=== PATIENT | female | born 1985 | race Caucasian/White ===

== ENCOUNTER 2016-11-16 13:12 | Emergency (ER) | payer MEDICAID ==
[~2016-11-16 13:12] MED LIST: ABILIFY10 MG PO; ABILIFY2 MG PO; ABILIFY5 MG PO; ADVAIR DIS1 PUFF/DO2 IH; ADVAIR IH; ARIPIPRAZOLE PO; ATARAX DPS50 MG PO; ATIVAN-DPS0.5 MG PO; AUGMENTIN875 MG PO; BUSPAR DPS10 MG PO; BUSPAR5 MG PO; CELEXA DPS20 MG PO; CELEXA40 MG PO; CIPRO DPS500 MG PO; DELTASONE DPS1 MG PO; DELTASONE DPS10 MG PO; DELTASONE DPS20 MG PO; DEPAKOTE500 MG PO; DOXYCYCLINE HY100 MG PO; DULERA 200/58.8 GM IH; DUONEB DPS3 ML IH; ELAVIL-DPS50 MG PO; EXCEDRIN DPS1 TAB PO; FLONASE 0.05% D16 GM NS; GUAIFEN-CODEIN473 ML PO; GUAIFENESIN ER600 MG PO; HABITROL DPS21 MG TD; IBUPROFEN400 MG PO; LEVAQUIN750 MG PO; LEXAPRO DPS10 MG PO; MAG-OX400 MG PO; MEDROL DOSE PACK PO; MINIPRESS DPS1 MG PO; MINIPRESS DPS2 MG PO; MONTELUKAST SOD10 MG PO; NAPROSYN DPS500 MG PO; NORVASC5 MG PO; PEPCID DPS20 MG PO; PHENERGAN DPS25 MG PO; PREDNISONE PO; PROAIR HFA8.5 GM IH; PROAIR RESPICL90 MCG IH; PROVENTIL 90 MCG IH; PROVENTIL HFA6.7 GM IH; SINGULAIR DPS5 MG PO; TOPAMAX50 MG PO; TYLENOL DPS325 MG PO; XANAX DPS0.5 MG PO; ZANAFLEX4 MG PO; ZANTAC DPS150 MG PO; ZITHROMAX250 MG PO; ZITHROMAX500 MG PO; ZYRTEC DPS10 MG PO; ZYRTEC10 M3 PO
--- NOTE | 2016-11-20 12:33 | ER ---
ADMIT: 11/16/2016 RM/LOC: ER [facility] MR#: [id number] 26[address] [facility] [id number] SHALA BOURGEOIS [address] [place] [address] Emergency Room Report SEX: F AGE: 31 : 1985 DATE: 11/16/2016 ADDENDUM: A 31-year-old white female coming in with vocal cord dysfunction. She has had this before. She gets a little anxious and then starts spasming of vocal cord. She has been seen at [facility], where they have been treating her as they have her in speech therapy. At this time, she does not have asthma. This is all upper airway problems. She needs to be followed up per ENT and speech therapy. We did give her Ativan IV that seems to help her and she is back to normal. CONDITION ON DISCHARGE: Improved. Marcio Pate MD/ liana JOB #: [id number] CC: Marcio Pate MD, Attending Physician Arnoldo Driscoll MD, Family Physician
[2016-12-29] MEDS ORDERED: SEROQUEL50 MG PO (13:34)
[2016-12-29] MEDS ORDERED: AMOXICILLIN875 MG PO (13:35)
== END 2016-11-16 14:30 | disposition home or self-care (01) ==
LOC: ER 13:12
DX: J38.3 Other diseases of vocal cords (principal); I10 Essential (primary) hypertension; G43.909 Migraine, unspecified, not intractable, without status migrainosus; Z79.899 Other long term (current) drug therapy

== ENCOUNTER 2016-12-25 16:00 | Inpatient (IN) | payer MEDICAID ==
[~2016-12-25] VITALS: Ht 167.6 cm; Wt 136.3 kg
[2016-12-29] MEDS ORDERED: SEROQUEL50 MG PO (13:34)
[2016-12-29] MEDS ORDERED: AMOXICILLIN875 MG PO (13:35)
--- NOTE | 2017-01-01 11:01 | ER ---
ADMIT: 12/25/2016 RM/LOC: 307 [facility] MR#: [id number] [address] [address] SHALA BOURGEOIS [address] [place] [address] Emergency Room Report SEX: F AGE: 31 : 1985 DATE: 12/25/2016 ADDENDUM: This is a 31-year-old white female coming in with respiratory distress. She has a known vocal cord dysfunction. Usually if we calm her down, she does okay. However, according to her sister, there was medicine lost. Apparently, she had overdosed on something. There was a bottle of Unasyn that was gone, but other than that, nothing more. We did end up putting her on BiPAP. This seemed to control her airway enough. Her chemistry is negative. Tylenol level, alcohol is negative. TSH is negative. Salicylate level is 2.1. Her CBC is okay at this time, not . Drug screen is pending at this time. She is stable on BiPAP. We will admit her for further observation. CONDITION ON DISCHARGE: Critical but stable. I spoke with Dr. Page. She will need to admit. Marcio Pate MD/ galdinol JOB #: [id number] CC: Arnoldo Driscoll MD, Attending Physician Arnoldo Driscoll MD, Family Physician
--- NOTE | 2017-01-02 09:07 | HP ---
ADMIT: 12/25/2016 RM/LOC: 307 [facility] MR#: [id number] [address] [address] SHALA BOURGEOIS [address] [place] [address] History and Physical SEX: F AGE: 31 : 1985 DATE OF SERVICE: 12/25/2016 CHIEF COMPLAINT: Overdose. HISTORY OF PRESENT ILLNESS: Shala Bourgeois is a 31-year-old female with past medical history significant for questionable seizure disorder, mood disorder, history of overdose, presents to the emergency department today after overdose. The patient was in her normal state of health until this afternoon, she was on the phone with her power of civil attorney and friend, Patricia. During this telephone conversation, Patricia noticed that the patient was somnolent and often would space out during the conversation. Patricia asked Shala what medications she took today, Shala stated that she took her Celexa, her BuSpar, and her Minipress as normal. The patient seemed excessively disoriented and somnolent on the phone, so Patricia called Shala's sister Valerie to go check on her at home. When Valerie arrived at the house, did startle Shala, and the patient started exhibiting seizure-like activity with convulsing, and called the EMS. When they arrived, they administered valium for seizure-like activity, and the patient was brought to the emergency department for further evaluation. On presentation, the patient was given IV fluids with normal saline and placed on BiPAP. There was some concern for airway protection given recent vomiting, but the patient was following commands and she has a known history of vocal cord dysfunction, so wanted to avoid intubation at all possible costs. The patient was on BiPAP when interviewed by myself, currently mildly distressed, tachypneic, able to squeeze hands, and spontaneously talk with difficulty since she is on BiPAP. REVIEW OF SYSTEMS: Unable to be obtained. PAST MEDICAL HISTORY: Significant for mood disorder, NOS; questionable seizure disorder; past medical history of vocal cord dysfunction. PAST SURGICAL HISTORY: Unknown. FAMILY HISTORY: Mom apparently has seizures. SOCIAL HISTORY: No significant alcohol use. Does have some suicide attempt in the past with Unisom about a year ago. No other drug use known. MEDICATIONS: 1. Prazosin. 2. Celexa. 3. BuSpar. PHYSICAL EXAMINATION: VITAL SIGNS: Blood pressure 123/72, heart rate 109, the patient is currently on BiPAP 16/8 setting at 95%. GENERAL: On BiPAP, follows commands. Mild to moderate distress. EARS, EYES, NOSE, THROAT: EOMI. Pupils are dilated bilaterally with response to light. LUNGS: The patient is on BiPAP, but clear to auscultation. No crackles. ADMIT: 12/25/2016 RM/LOC: 307 [facility] MR#: [id number] [address] [address] SHALA BOURGEOIS [address] [place] [address] History and Physical SEX: F AGE: 31 : 1985 CARDIAC: Tachycardic. Regular. No murmurs. Intact radial, posterior tibial, and dorsalis pedis pulses. ABDOMEN: Obese, nontender, positive bowel sounds. EXTREMITIES: No notable edema. One small bruise on the medial side of the left leg. NEUROLOGIC: Slightly obtunded but arousable and able to follow commands. LABORATORY DATA: WBC 7, hemoglobin 15.4, and platelets 278. Sodium 143, potassium 4.0, chloride 110, carbon dioxide 21, glucose 123, creatinine 1.0, calcium 8.1. Normal AST and ALT. Magnesium 2.1. Urinalysis unremarkable. UDS positive for benzodiazepines. Acetaminophen level less than 2. Ethanol, not detected. Thyroid functioning test normal. test negative. IMAGING: No imaging. ASSESSMENT AND PLAN: This is a 31-year-old woman with past medical history significant for mood disorder, not otherwise specified; possible seizure disorder; history of overdose, presents to the emergency department with seizure-like activity after overdose on Unisom. 1. Acute hypoxic respiratory failure secondary to overdose on Unisom, currently on BiPAP, saturating well on room air. Some concern for ability to protect airway. Going to get ABG. We will consider intubation if unable to protect airway. 2. Overdose. Suspect on Unisom, 2 empty bottles containing 60 pills each 25 mg doses. Continue IV fluids placing NG tube. 3. Mood versus anxiety disorder, not otherwise specified. Will require medical hold and consult to Psychiatry. Unclear if the patient has had past psychiatric hospitalizations. 4. Vocal cord dysfunction. Currently on BiPAP. We will assess need for intubation, but would like to hold if possible. 5. Questionable seizure disorder. The patient was given Valium en route to ADMIT: 12/25/2016 RM/LOC: 307 [facility] MR#: [id number] [address] [place] [phone] SHALA BOURGEOIS [address] [place] [address] History and Physical SEX: F AGE: 31 : 1985 the emergency department. Unclear if the patient has true seizure disorder. POA describes the seizure as absence; however, sister describes previous seizures as clonic tonic seizures. The patient was supposed to be evaluated by Neurology yesterday, but no show at the appointment. We will continue to monitor even if the patient does not have seizure disorder, she is likely to seize given overdose on antihistamine. 6. Deep venous thrombosis prophylaxis, Lovenox. 7. Code status: Full code. 8. Diet: NPO. My telephone number is [phone]. Please feel free to contact me if any questions or concerns. 45 minutes was spent in the admission and evaluation of this patient. Dave Rondon MD Resident / Leana Page MD / modl JOB #: [id number] CC: Arnoldo Driscoll MD, Attending Physician Arnoldo Driscoll MD, Family Physician
--- NOTE | 2017-01-04 14:08 | CO ---
ADMIT: 12/25/2016 RM/LOC: 307 [facility] MR#: [id number] [address] [address] BOURGEOISSHALA Tyler [address] [place] [address] Consultation SEX: F AGE: 31 : 1985 DATE OF CONSULTATION: 12/26/2016 ATTENDING PHYSICIAN: Arnoldo Driscoll MD CONSULTING PHYSICIAN: Douglas Infante MD IDENTIFYING INFORMATION/REASON FOR CONSULT: Shala is a 31-year-old, single, white female, resident of [place] where she resides with her 2 young children. Admitted to us subsequent to an overdose on Unisom. Details as mentioned in the history and physical examination. HISTORY OF PRESENT ILLNESS: Shala states that she does suffer from depression and does have an outpatient team that works with her. About the events, yesterday states that she really does not recall what exactly transpired. Remembers being on the phone with a friend, Carissa who got concerned as Shala appeared a bit slurred, but Carissa alerted the sister, who came over and that is where she apparently was having some "seizure-like activity." Does not see any neurologist that she knows of. Feels it might be more stress related. Does not remember taking any medications and definitely denies intentionally doing something to hurt herself. Talked about how she has a job in [employer], is a mother to 2 young kids and she would never think about taking her life or hurting herself in any way. Does endorse that she has been feeling a bit depressed and has an appointment with a psychiatrist coming up next week. Talked about various stressors which are around taking care of her 2 young children by herself and the financial issues etc. Single, but no relationship issues. Denies any suicidal ideations or intent. Vehemently declines ever wanting to hurt herself. No psychosis at this time, was a bit tired and somnolent, but otherwise able to understand questions. Gave responses, appeared relevant. Appeared a bit lethargic. PSYCHIATRIC HISTORY: Treatment for depression is on an outpatient regimen that includes Abilify and Seroquel, likely diagnosed with bipolar spectrum or a psychotic spectrum disorder. She states that she sees Laura Ordoñez for outpatient followup. Also has a therapist that she keeps up with. Recently, a referral has been made for psychiatry, she did not know the name, but she states that she has an appointment coming up next week. PAST MEDICAL HISTORY: Her medical note noted hypoxic respiratory failure secondary to Unisom, recovering obesity. DRUG AND ALCOHOL HISTORY: Declines any active issues. PERSONAL AND SOCIAL HISTORY: Lives in [place] with her 2 young children, ages 7 and 6. Works in [employer] for the last one month. MENTAL STATUS EXAMINATION: Appeared stated age. Calm, cooperative, slightly overweight. Sedated but able to understand questions. Gave appropriate ADMIT: 12/25/2016 RM/LOC: 307 [facility] MR#: [id number] [address] [place] [id number] SHALA BOURGEOIS [address] [place] [address] Consultation SEX: F AGE: 31 : 1985 responses. Aware of her surroundings. States she does not remember the circumstances yesterday, last remembers she not going to work. Being alone at home and on the phone with a friend, Carissa. Denies any suicidal ideations or intent, remorseful of how the things have transpired. Does not remember taking Unisom or what the circumstances around that would be. No clear psychosis. No manic symptomatology. Attention concentration is fair at this time. Working memory seems to be poor. Demonstrate amnesia around the event which is understandable. Judgment insight is fair by what she has to verbalize. ASSESSMENT AND PLAN: 1. Major depressive disorder, recurrent. 2. Status post overdose. 3. Based on the patient's account, I will recommend that she can get discharged when she is medically cleared. Discussed at length about our concerns especially now that she is a mom to 2 young children. The patient denies any suicidal ideation or intent and hopes that we do not recommend any intensive intervention and is worried that she might jeopardize her job and also wants to be around her kids. Does have an outpatient team and does plan to follow up with them. Please call with any specific concerns. Douglas Infante MD/ liana JOB #: [id number] CC: Arnoldo Driscoll MD, Attending Physician Arnoldo Driscoll MD, Family Physician
--- NOTE | 2017-01-11 17:37 | DS ---
ADMIT: 12/25/2016 RM/LOC: 307 [facility] MR#: [id number] 2620 [facility] [address] [place], [place] [address] SHALA OBURGEOIS [address] [place] [address] General Discharge Summary SEX: F AGE: 31 : 1985 ADMISSION DATE: 12/25/2016 DISCHARGE DATE: 12/28/2016 FINAL DIAGNOSES: 1. Unisom overdose. 2. Vocal cord dysfunction. 3. Respiratory failure. 4. History of seizure disorder. 5. Anxiety/depression. REASON FOR ADMISSION: Patient presented after having suspected overdose on Unisom. The patient looked lethargic to family and then found "seizing." She was put on BiPAP and then had 3 emesis. She is fairly obtunded and tachypneic. Fortunately, she was not intubated right away. She was treated for what looked like pneumonia as well, likely from aspiration. Psych consult obtained. Psych felt she was okay from a safety standpoint. At that time, she had initial prolonged QT. On , her QT was 573, was 489 on . She was overall feeling much better, still had a little bit of cough and some shortness of breath, but overall was pretty stable by the . She tolerated regular diet, had a little bit of nausea, otherwise okay. She did not ultimately needed oxygen, which was good. She was discharged with: 1. Abilify 15 mg at bedtime. 2. BuSpar 10 mg b.i.d. 3. Celexa 40 mg daily. 4. Minipress 1 mg at bedtime. 5. Seroquel 50 mg at bedtime. She was on a lot more quetiapine, had taken hydralazine 50 mg t.i.d. at home, but these were stopped. We will discharge her on Augmentin 875 b.i.d. 10 days. Follow with me in about 1 weeks' time. Arnoldo Driscoll MD/ liana JOB #: [id number] CC: Arnoldo Driscoll MD, Attending Physician Arnoldo Driscoll MD, Family Physician
== END 2016-12-28 15:40 | disposition home or self-care (01) | DRG 917 ==
LOC: ER 16:00 → 3ICU 18:22
PROVIDERS: ADMIT Internal Medicine
DX: T45.0X1A Poisoning by antiallergic and antiemetic drugs, accidental (unintentional), initial encounter (principal); J96.01 Acute respiratory failure with hypoxia; J69.0 Pneumonitis due to inhalation of food and vomit; Z68.42 Body mass index [BMI] 45.0-49.9, adult; R44.3 Hallucinations, unspecified; F39 Unspecified mood [affective] disorder; J38.3 Other diseases of vocal cords; F32.9 Major depressive disorder, single episode, unspecified; E66.01 Morbid (severe) obesity due to excess calories; I45.81 Long QT syndrome